=== PATIENT | female | born 1960 | race Caucasian/White ===

== ENCOUNTER 2017-01-16 19:12 | Emergency (ER) | payer OTHER ==
[2017-01-16] MEDS ORDERED: NS 1,000 ML IV ONE (19:30)
[2017-01-16 19:36] LABS: % IMMATURE GRANULYOCYTES 0.2 % (0.0-1.1); ABSOLUTE IMMATURE GRANULOCYTES 0.01 10^3/uL (0.00-0.10); ADD DIFF? NO; ADD MORPH? NO; ADD SCAN? NO; ATYPICAL LYMPHOCYTE FLAG 30 (0-99); FRAGMENT RBC FLAG 0 (0-99); HEMATOCRIT 39.3 % (38.0-47.0); HEMOGLOBIN 12.8 g/dL (12.6-16.3); LEFT SHIFT FLG 0 (0-99); LIPEMIA HEMOLYSIS FLAG 80 (0-99); MEAN CELL HEMOGLOBIN 29.8 pg (27.9-34.1); MEAN CELL HEMOGLOBIN CONCENTR. 32.6 g/dL (32.4-36.7); MEAN CELL VOLUME 91.4 fL (81.5-99.8); MEAN PLATELET VOLUME 9.2 fL (8.7-11.7); PLATELET CLUMPS FLAG 0 (0-99); PLATELET COUNT 394 10^3/uL (150-400); RED CELL DISTRIBUTION WIDTH 13.4 % (11.5-15.2)
--- NOTE | 2017-01-16 19:39 | EDPHY ---
H & P Stated Complaint: [facility] fall, syncope? Time Seen by Provider: 01/16/17 19:18 HPI/ROS: CHIEF COMPLAINT: Syncope HISTORY OF PRESENT ILLNESS: The patient is a 56-year-old female who comes to the emergency department after family called EMS for syncope. She tripped down the last step and fell into the piano. She hit her arm and leg on the piano. She did not hit her head. She said on the ground and her family got her ice and they had a conversation for about a minute or 2. She then became lightheaded and syncopal. She is leaning up against a wall and so did not go flat. Her described some fluttering of her eyes that concerned him for seizures. The patient woke up after about 20 seconds and was not postictal. She was incontinent of urine. She states that she has had many of these type of syncopal events in her life consisting of mild convulsions and incontinence. Always associated with pain or giving blood. She has never had them without a trigger. She describes them as vasovagal. She denies headache or neck pain. No sign of head injury. She denies chest pain or palpitations. REVIEW OF SYSTEMS: Constitutional: denies: chills, fever, recent illness, recent injury EENTM: denies: blurred vision, double vision, nose congestion Respiratory: denies: cough, shortness of breath Cardiac: denies: chest pain, irregular heart rate, lightheadedness, palpitations Gastrointestinal/Abdominal: denies: abdominal pain, diarrhea, nausea, vomiting, blood streaked stools Genitourinary: denies: dysuria, frequency, hematuria, pain Musculoskeletal: denies: joint pain, muscle pain Skin: denies: lesions, rash, jaundice, bruising Neurological: denies: headache, numbness, paresthesia, tingling, dizziness, weakness Hematologic/Lymphatic: denies: blood clots, easy bleeding, easy bruising Immunologic/allergic: denies: HIV/AIDS, transplant EXAM: GENERAL: Well-appearing, well-nourished and in no acute distress. HEAD: Atraumatic, normocephalic. EYES: Pupils equal round and reactive to light, extraocular movements intact, sclera anicteric, conjunctiva are normal. ENT: TMs normal, nares patent, oropharynx clear without exudates. Moist mucous membranes. NECK: Normal range of motion, supple without lymphadenopathy or JVD. LUNGS: Breath sounds clear to auscultation bilaterally and equal. No wheezes rales or rhonchi. HEART: Regular rate and rhythm without murmurs, rubs or gallops. ABDOMEN: Soft, nontender, normoactive bowel sounds. No guarding, no rebound. No masses appreciated. BACK: No CVA tenderness, no spinal tenderness, step-offs or deformities EXTREMITIES: Normal range of motion, no pitting or edema. No clubbing or cyanosis. NEUROLOGICAL: Cranial nerves II through XII grossly intact. Normal speech, normal gait. 5/5 strength, normal movement in all extremities, normal sensation PSYCH: Normal mood, normal affect. SKIN: Warm, dry, normal turgor, no visible rashes or lesions. Source: Patient, Family, EMS Exam Limitations: No limitations - Medical/Surgical History Hx Asthma: Yes Hx Chronic Respiratory Disease: No Hx Diabetes: No Hx Cardiac Disease: No Hx Renal Disease: No Hx Cirrhosis: No Hx Alcoholism: No Hx HIV/AIDS: No Hx Splenectomy or Spleen Trauma: No - Family History Significant Family History: No pertinent family hx - Social History Smoking Status: Never smoked Alcohol Use: Sober Drug Use: None Constitutional: Initial Vital Signs Temperature (C) 36.4 C 01/16/17 19:23 Heart Rate 62 01/16/17 19:23 Respiratory Rate 20 01/16/17 19:23 Blood Pressure 107/74 01/16/17 19:23 O2 Sat (%) 93 01/16/17 19:23 O2 Delivery Mode Room Air Allergies/Adverse Reactions: No Known Allergies Allergy (Unverified 01/16/17 19:23) Home Medications: Medication Instructions Recorded Ventolin Hfa 01/16/17 Medical Decision Making - Diagnostics EKG Interpretation: An EKG obtained and was read and documented in trace view. Please see trace view for full reading and report. Sinus rhythm, no acute ischemic changes ED Course/Re-evaluation: Patient has no signs of injury to her left arm or leg which is where she impacted the piano. No sign of head injury. She declines any imaging or trauma workup. I have a very low suspicion for any type of traumatic injury. She thinks that her syncopal event with was typical for her and secondary to pain. Her however is concerned and does want us to do blood work and an EKG. 8:35 p.m. the patient remains asymptomatic. She is eager to go home. Her family is here and agrees with the plan. We discussed follow-up and indications for returning. She again denies palpitations or chest pain. Or Shortness of breath. Differential Diagnosis: Partial list of the Differential diagnosis considered include but were not limited to; syncope, head injury, seizure and although unlikely based on the history and physical exam, I also considered acute coronary disease, infection, stroke. I discussed these differential diagnoses and the plan with the patient as well as the usual and expected course. The patient understands that the diagnosis is provisional and that in medicine we are not always correct and that further workup is often warranted. Usual and customary warnings were given. All of the patient's questions were answered. The patient was instructed to return to the emergency department should the symptoms at all worsen or return, otherwise to followup with the physician as we discussed. - Data Points Laboratory Results: Laboratory Results 01/16/17 19:20 01/16/17 19:20 01/16/17 01/16/17 19:20 19:20 WBC 6.65 10^3/uL 10^3/uL (3.80-9.50) RBC 4.30 10^6/uL 10^6/uL (4.18-5.33) Hgb 12.8 g/dL g/dL (12.6-16.3) Hct 39.3 % % (38.0-47.0) MCV 91.4 fL fL (81.5-99.8) MCH 29.8 pg pg (27.9-34.1) MCHC 32.6 g/dL g/dL (32.4-36.7) RDW 13.4 % % (11.5-15.2) Plt Count 394 10^3/uL 10^3/uL (150-400) MPV 9.2 fL fL (8.7-11.7) Neut % (Auto) 37.2 % L % (39.3-74.2) Lymph % (Auto) 47.2 % H % (15.0-45.0) Placer % (Auto) 8.9 % % (4.5-13.0) Eos % (Auto) 5.7 % % (0.6-7.6) Baso % (Auto) 0.8 % % (0.3-1.7) Nucleat RBC Rel Count 0.0 % % (0.0-0.2) Absolute Neuts (auto) 2.48 10^3/uL 10^3/uL (1.70-6.50) Absolute Lymphs (auto) 3.14 10^3/uL H 10^3/uL (1.00-3.00) Absolute Monos (auto) 0.59 10^3/uL 10^3/uL (0.30-0.80) Absolute Eos (auto) 0.38 10^3/uL 10^3/uL (0.03-0.40) Absolute Basos (auto) 0.05 10^3/uL 10^3/uL (0.02-0.10) Absolute Nucleated RBC 0.00 10^3/uL 10^3/uL (0-0.01) Immature Gran % 0.2 % % (0.0-1.1) Immature Gran # 0.01 10^3/uL 10^3/uL (0.00-0.10) Sodium 138 mEq/L mEq/L (134-144) Potassium 4.3 mEq/L mEq/L (3.5-5.2) Chloride 100 mEq/L mEq/L (97-110) Carbon Dioxide 28 mEq/l mEq/l (22-31) Anion Gap 10 mEq/L mEq/L (8-16) BUN 14 mg/dL mg/dL (7-23) Creatinine 0.8 mg/dL mg/dL (0.6-1.0) Estimated GFR > 60 Glucose 88 mg/dL mg/dL (70-100) Calcium 9.6 mg/dL mg/dL (8.5-10.4) Medications Given: Discontinued Medications Sodium Chloride (Ns) 1,000 mls @ 0 mls/hr IV ONCE ONE PRN Reason: Wide Open Stop: 01/16/17 19:31 Last Admin: 01/16/17 19:42 Dose: 1,000 mls Departure - Departure Disposition: Home, Routine, Self-Care Clinical Impression: Syncope Qualifiers: Syncope type: vasovagal syncope Qualified Code(s): R55 - Syncope and collapse Condition: Fair Instructions: Syncope (ED) Referrals: MD LITA [Other] - As per Instructions
[2017-01-16 19:57] LABS: ANION GAP 10 mEq/L (8-16); CALCIUM 9.6 mg/dL (8.5-10.4); CARBON DIOXIDE 28 mEq/l (22-31); CHLORIDE 100 mEq/L (97-110); CREATININE 0.8 mg/dL (0.6-1.0); GLOMERULAR FILTRATION RATE > 60; GLUCOSE 88 mg/dL (70-100); POTASSIUM 4.3 mEq/L (3.5-5.2); SODIUM 138 mEq/L (134-144)
--- NOTE | 2017-01-16 20:02 | CPEKG ---
Heart Rate: 58 RR Interval: 1034 P-R Interval: 200 QRSD Interval: 78 QT Interval: 400 QTC Interval: 393 P [place]: 71 QRS [place]: 58 T Wave [place]: 46 EKG Severity - NORMAL ECG - EKG Impression: SINUS RHYTHM Electronically Signed By: Adriano Goldstein 16-Jan-2017 20:10:54
[2017-01-16 20:49] VITALS: BP 107/71; PULSE 70; RESP 16; TEMP 97.7; O2SAT 95
== END 2017-01-16 20:48 | disposition home or self-care (01) ==
LOC: EDUNIT#
DX: R55 Syncope and collapse (principal); J45.909 Unspecified asthma, uncomplicated

== ENCOUNTER 2017-11-17 16:59 | Emergency (ER) | payer OTHER ==
--- NOTE | 2017-11-17 17:13 | EDPHY ---
General Time Seen by Provider: 11/17/17 17:09 Narrative: CHIEF COMPLAINT: Crush injury, laceration HISTORY OF PRESENT ILLNESS: Patient complains of accidental crush injury and laceration to the right index finger. This happened approximately 1 hr prior to arrival. She accidentally closed her right index finger in the car door. This was at the top of the door. It did not latch. Immediately opened. Sudden onset of severe, burning pain. The pain has improved but she now has some paresthesia of the thumb phalanx on the right index finger. The remainder of the fingers and hand were not involved in this. No difficulty bending or straightening but it is painful to do so. No pulsatile bleeding described no other associated complaints or modifying factors. TIME OF INJURY: 1 hr prior to arrival TETANUS STATUS: up to date MEDICAL/SURGICAL/SOCIAL HISTORY: Uncomplicated medical history. No recent surgeries. REVIEW OF SYSTEMS: Ten systems reviewed and are negative unless otherwise noted in the HPI EXAMINATION General Appearance: Alert, no distress Head: normocephalic, atraumatic Cardiovascular: Symmetric radial pulses 2+. Brisk cap refill the right index finger Neurological: A&O, 2 point sensation intact in the proximal middle phalanx of the right index finger. Good strength of the interossei on the right hand. Skin: Warm and dry, no rash. 2 cm laceration, curvilinear on the right index finger. This is on the palmar side, distal phalanx. No foreign body. No pulsatile bleeding. No involvement of the tendon. Extremities: Tenderness of the right index finger throughout full flexion extension of the index fingers retained without deficit. Neurovascular intact distal to the area of laceration. DIFFERENTIAL DIAGNOSES: Including but not limited to crush injury, phalanx fracture, open phalanx fracture, finger laceration, laceration complication MDM: 5:15 p.m. Simple laceration of the right index finger over the distal phalanx, palmar side. This is an oblique laceration with minimal distraction of the wound borders but will require suture repair. Low clinical suspicion for fracture, but given that this was a crush injury I have ordered x-ray. She appears to be neuro intact with full flexion extension of the finger. 5:30 p.m. My interpretation of the x-ray is no acute fracture or foreign body. I have administered a digital block. Proceed with irrigation and closure of the laceration. 5:55 p.m. Laceration of the right index finger has been closed without difficulty. Excellent approximation of wound borders. No tendon involvement. No foreign body. No abnormality on the x-ray as read by radiologist. We discussed wound care. We discussed ED precautions. We discuss return to this emergency department in 7-10 days for suture removal. I have answered all of her questions and she is discharged home stable condition. PROCEDURE: Digital Block Indication: Finger laceration Consent: Verbal Location: Right index finger Anesthesia: Lidocaine 1% plain, 0.25% Marcaine plain, 5mL Description: Base of the finger was prepped. The above was infused without difficulty. Tolerated well. Good anesthesia. Complications: None PROCEDURE: Laceration repair Consent: Verbal Location: Right index finger, distal phalanx, palmar side Length of repair: 2 cm Complexity: Simple Layer involvement: Single Anesthesia: Digital block Irrigation: Extensive Debridement: None Procedure description: Following good anesthesia, the wound was copiously irrigated. Wound bed was explored with a sterile glove, and there is no foreign body noted. No tendon injury. Wound borders were approximated well with good hemostasis. Tolerated well without complication. Suture/Staple material: 5-0 Ethilon, 3 simple interrupted sutures Wound care: Routine as discussed Suture/Staple removal: 7-10 Days SUPERVISION: This patient was independently evaluated without direct involvement of or examination by the attending physician. ED Precautions: Worsening pain. Erythema, edema, cyanosis, pallor, paresthesia or anesthesia. - Diagnostics Imaging Results: Imaging Impressions Finger X-Ray 11/17/17 17:13 Impression: No definite acute fracture identified. - History Smoking Status: Never smoked - Objective Vital Signs: Initial Vital Signs Temperature (C) 98.1 F 11/17/17 17:03 Heart Rate 67 11/17/17 17:03 Respiratory Rate 16 11/17/17 17:03 Blood Pressure 130/90 H 11/17/17 17:03 O2 Sat (%) 98 11/17/17 17:03 O2 Delivery Mode Room Air Allergies/Adverse Reactions: No Known Allergies Allergy (Unverified 01/16/17 19:23) Home Medications: Medication Instructions Recorded NK [No Known Home Meds] 11/17/17 Departure - Departure Disposition: Home, Routine, Self-Care Clinical Impression: Crushing injury of finger of right hand Finger laceration Qualifiers: Encounter type: initial encounter Finger: index finger Damage to nail status: without damage Foreign body presence: without foreign body Laterality: right Qualified Code(s): S61.210A - Laceration without foreign body of right index finger without damage to nail, initial encounter Condition: Good Instructions: Care For Your Stitches (ED), Laceration (ED), Crush Injury (ED) Additional Instructions: 1. Daily wound care as discussed 2. Follow up with primary care physician or your established hand surgeon for wound evaluation in 48 hr 3. ED precautions for worsening pain, numbness, tingling, difficulty bending the finger, redness or purulence from the wound 4. Follow up in this emergency department in 7-10 days for suture removal. No appointment needed Referrals: CLAY RAND [Primary Care Provider] - As per Instructions Physician,Emergency DeptMD [Medical Doctor] - As per Instructions (7-10 days for suture removal)
[2017-11-17 17:36] VITALS: BP 120/82; PULSE 65; RESP 18; TEMP 97.9; O2SAT 93
== END 2017-11-17 18:14 | disposition home or self-care (01) ==
PROC: 0HQFXZZ Repair Right Hand Skin, External Approach (ICD-10-PCS; principal; 2017-11-17)
DX: S61.210A Laceration without foreign body of right index finger without damage to nail, initial encounter (principal); W23.0XXA Caught, crushed, jammed, or pinched between moving objects, initial encounter